=== PATIENT | male | born 1975 | race Two or more races ===

== ENCOUNTER 2021-03-07 14:30 | Emergency (ER) | payer MEDICAID ==
[~2021-03-07] VITALS: Ht 165.1 cm; Wt 63.6 kg
[2021-03-07 15:10] VITALS: BP 147/95
[2021-03-07] MEDS ORDERED: LIDOcaine 1% W/epiNEPHrine 1:200,000 10ml vial IJ ONE (15:15)
[2021-03-07] MEDS ORDERED: LIDOcaine 1% W/epiNEPHrine 1:100,000 20ml vial IJ ONE (15:20)
[2021-03-07] MEDS ORDERED: CEPH250T PO (15:23)
[2021-03-07] MEDS ORDERED: SULF1TAB45 PO (15:23)
== END 2021-03-07 16:55 | disposition home or self-care (01) ==
LOC: ER 14:31
DX: L02.416 Cutaneous abscess of left lower limb (principal); E11.9 Type 2 diabetes mellitus without complications; Z79.899 Other long term (current) drug therapy
CPT/HCPCS: 10060; 99283

== ENCOUNTER 2021-05-11 19:01 | Emergency (ER) | payer MEDICAID ==
[~2021-05-11] VITALS: Ht 165.1 cm; Wt 63.0 kg
[2021-05-11 19:08] VITALS: BP 123/53
== END 2021-05-11 20:44 | disposition home or self-care (01) ==
LOC: ER 19:02
DX: E11.621 Type 2 diabetes mellitus with foot ulcer (principal); L97.519 Non-pressure chronic ulcer of other part of right foot with unspecified severity; M79.671 Pain in right foot; Z88.0 Allergy status to penicillin
CPT/HCPCS: 99281